=== PATIENT | female | born 1970 | race Caucasian/White ===

== ENCOUNTER → 2019-02-04 | Outpatient (CLI) | payer BC ==
--- NOTE | 2019-02-07 09:19 | MM ---
Reason for exam: screening (asymptomatic). Last mammogram was performed 1 year and 10 months ago. History: Silicone gel implants in both breasts, June 2010. Physical Findings: A clinical breast exam by your physician is recommended on an annual basis and results should be correlated with mammographic findings. MG 3D Screen Mammo Imp/Cad Bilateral CC, MLO, and ID view(s) were taken. Prior study comparison: April 06, 2017, bilateral MG 3d screen mammo imp/cad. June 17, 2011, CAD bilateral diagnostic mammogram. The breast tissue is heterogeneously dense. This may lower the sensitivity of mammography. No suspicious abnormality. Bilateral retorpectoral silicone implants. No significant changes when compared with prior studies. ASSESSMENT: Negative, BI-RAD 1 RECOMMENDATION: Routine screening mammogram of both breasts in 1 year.
== END | disposition home or self-care (01) ==
LOC: RADMAMWWP 09:06
PROVIDERS: ATTEND Family Medicine
DX: Z12.31 Encounter for screening mammogram for malignant neoplasm of breast (principal)
CPT/HCPCS: 77063; 77067

== ENCOUNTER → 2020-05-03 | Outpatient (CLI) | payer BC ==
--- NOTE | 2020-05-07 09:16 | MM ---
Reason for exam: screening (asymptomatic). Last mammogram was performed 1 year and 3 months ago. History: Silicone gel implants in both breasts, June 2010. Physical Findings: A clinical breast exam by your physician is recommended on an annual basis and results should be correlated with mammographic findings. MG 3D Screen Mammo Imp/Cad Bilateral CC, MLO, and ID view(s) were taken. Prior study comparison: February 04, 2019, bilateral MG 3d screen mammo imp/cad. April 06, 2017, bilateral MG 3d screen mammo imp/cad. The breast tissue is heterogeneously dense. This may lower the sensitivity of mammography. There are benign appearing round calcifications. There is chronic nodularity in the left upper outer quadrant. Bilateral subpectoral implants. ASSESSMENT: Benign, BI-RAD 2 RECOMMENDATION: Routine screening mammogram of both breasts in 1 year.
== END | disposition home or self-care (01) ==
LOC: RADMAMWWP 10:59
PROVIDERS: ATTEND Physician Assistant Medical
DX: Z12.31 Encounter for screening mammogram for malignant neoplasm of breast (principal)
CPT/HCPCS: 77063; 77067

== ENCOUNTER → 2021-09-05 | Outpatient (CLI) | payer BC ==
--- NOTE | 2021-09-06 12:32 | MM ---
Reason for exam: screening (asymptomatic). Last mammogram was performed 1 year and 4 months ago. History: Patient is postmenopausal. Silicone gel implants in both breasts, June 2010. Taking estrogen for 9 months. Taking progesterone for 9 months. Physical Findings: A clinical breast exam by your physician is recommended on an annual basis and results should be correlated with mammographic findings. MG 3D Screen Mammo Imp/Cad Bilateral CC, MLO, and ID view(s) were taken. Prior study comparison: May 03, 2020, bilateral MG 3d screen mammo imp/cad. February 04, 2019, bilateral MG 3d screen mammo imp/cad. The breast tissue is heterogeneously dense. This may lower the sensitivity of mammography. Implants are intact No significant changes when compared with prior studies. ASSESSMENT: Benign, BI-RAD 2 RECOMMENDATION: Routine screening mammogram of both breasts in 1 year.
== END | disposition home or self-care (01) ==
LOC: RADMAMWWP 13:45
PROVIDERS: ATTEND Family Medicine
DX: Z12.31 Encounter for screening mammogram for malignant neoplasm of breast (principal); Z78.0 Asymptomatic menopausal state
CPT/HCPCS: 77063; 77067

== ENCOUNTER → 2021-10-07 | Outpatient (CLI) | payer BC ==
--- NOTE | 2021-10-07 15:24 | P.HPBAR ---
Bariatric H&P - History & Physicial H&P Date: 10/07/21 History & Physicial: Visit/CC: Patient initial contact: Initial weight: Initial weight in pounds: Height: Initial BMI: Last weight: Current weight: Current weight in pounds: Current BMI: [place] body weight (based on NIH guidelines): Excess body weight loss: The patient is a 51 year-old F who presents for Bariatric Assessment. Patient presents today for presurgical consultation. Her weight is 202 pounds her height is 5 foot 3. Her BMI is 36. She's been morbidly obese for several years. She has developed comorbidities limited to morbid obesity. The patient is an excellent understanding of sleeve gastrectomy. When over the risks and benefits of the procedure. Surgical - Exam - General well developed, well nourished, no distress - Eyes PERRL - ENT normal pinna - Neck no masses - Respiratory normal expansion - Cardiovascular Rhythm: regular - Abdomen Abdomen: soft, non tender Bariatric Assessment & Plan Plan: Morbid obesity. BMI 36. Patient will be scheduled for EGD. She will have her follow-up after this is been performed. Bariatric Checklist Checklist: Plan: Checklist: EGD: 1. Hiatal hernia: 2. H. Pylori: HgbA1c: Vitamin D: Smoking: Primary care physician referral: Psychiatry clearance: Cardiology clearance: Sleep study: Diet journal: VTE risk score: VTE risk level: Rehab needs at discharge:
[2021-10-07 16:05] VITALS: BP 120/80; PULSE 59; RESP 16; TEMP 97.9; BMI 35.2
== END ==
LOC: BARWHC3 14:49
PROVIDERS: ATTEND Surgery
DX: E66.01 Morbid (severe) obesity due to excess calories (principal); Z01.818 Encounter for other preprocedural examination; Z68.36 Body mass index [BMI] 36.0-36.9, adult
CPT/HCPCS: 99211

== ENCOUNTER → 2021-10-10 | Outpatient (CLI) | payer BC ==
[2021-10-10 18:16] LABS: HCT 45.7 % (37.2-46.3); HGB 15.2 g/dL (12.0-15.0); MCH 30.7 pg (27.0-32.0); MCHC 33.3 g/dL (32.0-37.0); MCV 92.3 fL (80.0-97.0); Mean Platelet Volume 10.2 fL (9.5-12.2); NRBC Per 100 WBC 0 /100 WBCS (0.0-0.0); Platelet Count 213 X 10*3/uL (140-440); RBC 4.95 X 10*6/uL (4.10-5.20); RDW 12.2 % (11.5-14.5)
[2021-10-10 18:40] LABS: African American GFR (CKD) 80.5 (60.0-200.0); Albumin/Globulin Ratio 1.96 (1.60-3.17); Anion Gap 13.2 mmol/L (10.00-18.00); BUN/Creat Ratio 10.82 Ratio (12.00-20.00); Blood Urea Nitrogen 10.2 mg/dL (9.0-27.0); Calcium 9.7 mg/dL (8.7-10.3); Carbon Dioxide 23.3 mmol/L (20.0-27.5); Globulin 2.6 g/dL (1.6-3.3); Non-African American GFR(CKD) 69.5 (60.0-200.0); Potassium 4.3 mmol/L (3.5-5.5); Total Bilirubin 0.5 mg/dL (0.30-1.20); Total Protein 7.5 g/dL (6.2-8.2)
== END | disposition home or self-care (01) ==
LOC: LABWHC1 11:28
PROVIDERS: ATTEND Surgery
DX: E88.81 Metabolic syndrome and other insulin resistance (principal); E66.01 Morbid (severe) obesity due to excess calories; E55.9 Vitamin D deficiency, unspecified
CPT/HCPCS: 36415; 80053; 82306; 82607; 82746; 83036; 84425; 85027; 93005

== ENCOUNTER → 2021-11-04 | Day surgery (SDC) | payer BC ==
[2021-10-30 15:15] VITALS: BMI 35.2
[~2021-11-04] MED LIST: LIDOCAINE 2% INJ 20 MG/ML (2 ML VIAL) ONE; PROPOFOL 10 MG/ML 20 ML VIAL IV ONE
[2021-11-04 12:30] VITALS: TEMP 98.2
[2021-11-04] MEDS: LACTATED RINGERS 1,000 ML IV SCH ×2 (12:39→12:49)
--- NOTE | 2021-11-04 12:53 | P.GSHP ---
History of Present Illness H&P Date: 11/04/21 Chief Complaint: GERD, morbid obesity This a 49-year-old female presents today for EGD. She is undergoing workup for sleeve gastrectomy. She's had quit of GERD. She is morbidly obese. Her BMI is 36 Past Medical History Past Medical History: Thyroid Disorder Additional Past Medical History / Comment(s): LOW IRON LEVEL History of Any Multi-Drug Resistant Organisms: None Reported Past Surgical History: Tubal Ligation Additional Past Surgical History / Comment(s): TUMMY TUCK. BREAST AUGMENTATION. EYELID LIFT Past Anesthesia/Blood Transfusion Reactions: No Reported Reaction Smoking Status: Never smoker - Past Family History Mother Family Medical History: No Reported History Father Family Medical History: Cancer Additional Family Medical History / Comment(s): LUNG CANCER-WAS HEAVY SMOKER Medications and Allergies Home Medications Medication Instructions Recorded Confirmed Type Levothyroxine Sodium [Synthroid] 175 mcg PO DAILY 10/17/21 11/04/21 History Ferrous Sulfate [Feosol] 325 mg PO DAILY 10/30/21 11/04/21 History Multivit with Calcium,Iron,Min 1 each PO DAILY 10/30/21 11/04/21 History [Women's Multivitamin] Allergies Allergy/AdvReac Type Severity Reaction Status Date / Time No Known Allergies Allergy Verified 11/04/21 12:30 Surgical - Exam Vital Signs Temp Pulse Resp BP Pulse Ox 98.2 F 55 L 18 122/71 98 11/04/21 12:27 11/04/21 12:27 11/04/21 12:27 11/04/21 12:27 11/04/21 12:27 - General well developed, well nourished, no distress - Eyes PERRL - ENT normal pinna, normal nares, normal mucosa - Neck no masses - Respiratory normal expansion - Cardiovascular Rhythm: regular - Abdomen Abdomen: soft, non tender Assessment and Plan Assessment: GERD. We'll perform EGD.
--- NOTE | 2021-11-04 13:01 | P.OP ---
Date of Procedure: 11/04/21 Preoperative Diagnosis: GERD Postoperative Diagnosis: Antral gastritis Procedure(s) Performed: EGD Anesthesia: MAC Surgeon: Oswald Sandhu Pathology: other (Antrum) Condition: stable Disposition: PACU Description of Procedure: The patient's placed on the endoscopy table in the lateral position. She rece ived IV sedation. The gastroscope placed oropharynx passed in the esophagus and into the stomach. Scope was placed through the pylorus. The first and second portion of duodenum appeared normal. Scope was then brought back the antrum this was mildly inflamed. A biopsies was performed. Scope was then retroflexed and remainder the stomach appeared normal. The GE junction was at 40 cm per the distal esophagus was normal. The proximal esophagus appeared normal. Scope withdrawn for patient.
[2021-11-04 13:22] VITALS: BP 108/72; PULSE 60; RESP 20
== END ==
LOC: ORWHC2ENDO 11:12
PROVIDERS: ATTEND Surgery
DX: K29.50 Unspecified chronic gastritis without bleeding (principal); K21.9 Gastro-esophageal reflux disease without esophagitis; E66.01 Morbid (severe) obesity due to excess calories; E07.9 Disorder of thyroid, unspecified; Z68.36 Body mass index [BMI] 36.0-36.9, adult; Z79.890 Hormone replacement therapy; Z98.51 Tubal ligation status; Z80.1 Family history of malignant neoplasm of trachea, bronchus and lung
CPT/HCPCS: 81025; 88305; 43239; J2704; J2001

== ENCOUNTER → 2021-12-02 | Outpatient (CLI) | payer BC ==
[2021-12-02 14:43] VITALS: BP 105/68; PULSE 70; TEMP 98.4; BMI 34.7
--- NOTE | 2021-12-02 15:27 | P.HPBAR ---
Bariatric H&P - History & Physicial H&P Date: 12/02/21 History & Physicial: Visit/CC: f/u Patient initial contact: Initial weight: 91.711 kg Initial weight in pounds: 202.19 Height: 5 ft 3.5 in Initial BMI: 35.2 Last weight: Current weight: 90.265 kg Current weight in pounds: 199.00 Current BMI: 34.7 [place] body weight (based on NIH guidelines): 53.297 kg Excess body weight loss: 3.7% The patient is a 51 year-old F who presents for Bariatric Assessment. Patient resents today for presurgical screening. She recently had her EGD. This was within normal as. Her BMI is 35. She had some mild gastritis Past Medical History Past Medical History: Thyroid Disorder Additional Past Medical History / Comment(s): LOW IRON LEVEL History of Any Multi-Drug Resistant Organisms: None Reported Past Surgical History: Tubal Ligation Additional Past Surgical History / Comment(s): TUMMY TUCK. BREAST AUGMENTATION. EYELID LIFT Past Anesthesia/Blood Transfusion Reactions: No Reported Reaction Past Psychological History: No Psychological Hx Reported Smoking Status: Never smoker Past Alcohol Use History: Occasional Past Drug Use History: None Reported - Past Family History Mother Family Medical History: No Reported History Father Family Medical History: Cancer Additional Family Medical History / Comment(s): LUNG CANCER-WAS HEAVY SMOKER Surgical - Exam Vital Signs Temp Pulse BP 98.4 F 70 105/68 12/02/21 14:41 12/02/21 14:41 12/02/21 14:41 - General well developed, well nourished, no distress - Eyes PERRL - ENT normal pinna, normal nares - Neck no masses - Respiratory normal expansion - Cardiovascular Rhythm: regular - Abdomen Abdomen: soft, non tender Bariatric Assessment & Plan Plan: Morbid obesity, BMI 35. Patient's gastritis minimal. She will undergo sleeve gastrectomy once her insurance authorization is been met. Bariatric Checklist Checklist: Plan: Checklist: EGD: 1. Hiatal hernia: 2. H. Pylori: HgbA1c: Vitamin D: Smoking: Primary care physician referral: Lara Psychiatry clearance: Cardiology clearance: Sleep study: Diet journal: VTE risk score: VTE risk level: Rehab needs at discharge:
== END ==
LOC: BARWHC3 14:31
PROVIDERS: ATTEND Surgery
DX: Z01.818 Encounter for other preprocedural examination (principal); E66.01 Morbid (severe) obesity due to excess calories; Z68.35 Body mass index [BMI] 35.0-35.9, adult; K29.70 Gastritis, unspecified, without bleeding
CPT/HCPCS: 99211

== ENCOUNTER → 2022-01-13 | Outpatient (CLI) | payer BC ==
[2022-01-13 11:22] VITALS: BMI 35.6
== END ==
LOC: BARWHC3 08:47
PROVIDERS: ATTEND Surgery
DX: E66.01 Morbid (severe) obesity due to excess calories (principal); Z71.3 Dietary counseling and surveillance; Z68.35 Body mass index [BMI] 35.0-35.9, adult
CPT/HCPCS: 97804

== ENCOUNTER → 2022-02-03 | Outpatient (CLI) | payer BC ==
[2022-02-03 14:26] VITALS: BP 129/84; PULSE 66; TEMP 98; BMI 35.5
--- NOTE | 2022-02-03 14:56 | P.HPBAR ---
Bariatric H&P - History & Physicial H&P Date: 02/03/22 History & Physicial: Visit/CC: pre-surg sleeve Patient initial contact: Initial weight: 91.711 kg Initial weight in pounds: 202.19 Height: 5 ft 3.5 in Initial BMI: 35.2 Last weight: Current weight: 92.533 kg Current weight in pounds: 204.00 Current BMI: 35.5 [place] body weight (based on NIH guidelines): 53.297 kg Excess body weight loss: The patient is a 51 year-old F who presents for Bariatric Assessment.she presents today for presurgical consultation. Her weight is remain stable. She has an excellent understanding of sleeve gastrectomy. Past Medical History Past Medical History: Thyroid Disorder Additional Past Medical History / Comment(s): LOW IRON LEVEL History of Any Multi-Drug Resistant Organisms: None Reported Past Surgical History: Tubal Ligation Additional Past Surgical History / Comment(s): TUMMY TUCK. BREAST AUGMENTATION. EYELID LIFT Past Anesthesia/Blood Transfusion Reactions: No Reported Reaction Past Psychological History: No Psychological Hx Reported Smoking Status: Never smoker Past Alcohol Use History: Occasional Past Drug Use History: None Reported - Past Family History Mother Family Medical History: No Reported History Father Family Medical History: Cancer Additional Family Medical History / Comment(s): LUNG CANCER-WAS HEAVY SMOKER Surgical - Exam Vital Signs Temp Pulse BP 98 F 66 129/84 02/03/22 14:23 02/03/22 14:23 02/03/22 14:23 - General well developed, well nourished, no distress - Eyes PERRL - ENT normal pinna - Neck no masses - Abdomen Abdomen: soft, non tender Bariatric Assessment & Plan Plan: morbid obesity, BMI 36. We went over the risks and benefits of sleeve gastrectomy. Patient extensive risks and potential staple line disruption, bleeding and scarring. Patient will be scheduled for sleeve gastrectomy once her insurance authorization is complete. Bariatric Checklist Checklist: Plan: Checklist: EGD: 1. Hiatal hernia: 2. H. Pylori: HgbA1c: Vitamin D: Smoking: Primary care physician referral: Mariilldavidy Psychiatry clearance: Cardiology clearance: Sleep study: Diet journal: VTE risk score: VTE risk level: Rehab needs at discharge:
== END | disposition home or self-care (01) ==
LOC: BARWHC3 14:01
PROVIDERS: ATTEND Surgery
DX: E66.01 Morbid (severe) obesity due to excess calories (principal); Z68.36 Body mass index [BMI] 36.0-36.9, adult
CPT/HCPCS: 99211

== ENCOUNTER → 2022-03-03 | Outpatient (CLI) | payer BC ==
[2022-03-03 18:07] LABS: Basophils # (A) 0.02 X 10*3/uL (0.00-0.10); Basophils % (A) 0.3 %; Eosinophils # (A) 0.02 X 10*3/uL (0.04-0.35); Eosinophils % (A) 0.3 %; HCT 44.8 % (37.2-46.3); Immature Grans, Automated 0.6 %; Lymphocytes # (A) 1.85 X 10*3/uL (0.90-5.00); MCH 32.4 pg (27.0-32.0); MCHC 33.5 g/dL (32.0-37.0); MCV 96.8 fL (80.0-97.0); Mean Platelet Volume 10.4 fL (9.5-12.2); Monocytes # (A) 0.63 X 10*3/uL (0.20-1.00); Monocytes % (A) 10.2 %; NRBC Per 100 WBC 0 /100 WBCS (0.0-0.0); Neutrophils # (A) 3.61 X 10*3/uL (1.80-7.70); Neutrophils % (A) 58.6 %; Platelet Count 197 X 10*3/uL (140-440); RBC 4.63 X 10*6/uL (4.10-5.20); RDW 12.4 % (11.5-14.5); WBC 6.17 X 10*3/uL (4.50-10.00)
[2022-03-03 18:21] LABS: African American GFR (CKD) 89.8 (60.0-200.0); Albumin 4.8 g/dL (3.8-4.9); Albumin/Globulin Ratio 1.68 (1.60-3.17); Anion Gap 10.2 mmol/L (10.00-18.00); BUN/Creat Ratio 17.87 Ratio (12.00-20.00); Blood Urea Nitrogen 15.4 mg/dL (9.0-27.0); Calcium 9.3 mg/dL (8.7-10.3); Carbon Dioxide 27.5 mmol/L (20.0-27.5); Globulin 2.8 g/dL (1.6-3.3); Non-African American GFR(CKD) 77.5 (60.0-200.0); Potassium 4.6 mmol/L (3.5-5.5); Total Bilirubin 0.5 mg/dL (0.30-1.20); Total Protein 7.6 g/dL (6.2-8.2)
== END | disposition home or self-care (01) ==
LOC: LABPAT 10:37
PROVIDERS: ATTEND Surgery
DX: Z01.818 Encounter for other preprocedural examination (principal)
CPT/HCPCS: 80053; 85025

== ENCOUNTER 2022-03-17 09:33 | Observation (INO) | payer BC ==
[~2022-03-17 09:33] MED LIST changes: +DEXAMETHASONE SOD PHOSPHATE 4 MG/ML 1 ML VIAL IV ONE; +ENOXAPARIN 40 MG/0.4 ML SYRINGE SQ PRN; +LIDOCAINE 1% (10MG/ML) FOR IV START INTRADERMA PRN; -LIDOCAINE 2% INJ 20 MG/ML (2 ML VIAL) ONE; +MIDAZOLAM 2 MG/2 ML VIAL IV PRN; +ONDANSETRON 4 MG/2 ML VIAL IVP ONE; -PROPOFOL 10 MG/ML 20 ML VIAL IV ONE
[2022-03-17] MEDS: LACTATED RINGERS 1,000 ML IV SCH (09:51)
[2022-03-17 10:13] LABS: Glucose,Whole Blood 94 mg/dL (70-110)
[2022-03-17] MEDS ORDERED: BUPIVACAIN-EPI 0.25%-1:200,000 30 ML VIAL SQ ONE ×2 (10:28→11:23)
--- NOTE | 2022-03-17 10:49 | P.GSHP ---
History of Present Illness H&P Date: 03/17/22 Chief Complaint: Morbid obesity, BMI 35 This a 51-year-old female who presents today for laparoscopic sleeve gastrectomy. Patient's had lifetime problems obesity. Patient understands the risk of surgery including possible issues with gastric sleeve such as gastric sleeve staple line disruption, bleeding and scarring. Past Medical History Past Medical History: Osteoarthritis (OA), Sleep Apnea/CPAP/BIPAP, Thyroid Disorder Additional Past Medical History / Comment(s): steroid use Feb 2022,no cpap,hx anemia, low iron level,Osteoarthritis of back History of Any Multi-Drug Resistant Organisms: None Reported Past Surgical History: Tubal Ligation Additional Past Surgical History / Comment(s): TUMMY TUCK. BREAST AUGMENTATION- steven implants present. EYELID LIFT Past Anesthesia/Blood Transfusion Reactions: No Reported Reaction Additional Past Anesthesia/Blood Transfusion Reaction / Comment(s): no hx blood transfusion Smoking Status: Never smoker - Past Family History Mother Family Medical History: No Reported History Father Family Medical History: Cancer Additional Family Medical History / Comment(s): LUNG CANCER-WAS HEAVY SMOKER Medications and Allergies Home Medications Medication Instructions Recorded Confirmed Type Levothyroxine Sodium [Synthroid] 175 mcg PO QAM 10/17/21 03/17/22 History Ferrous Sulfate [Feosol] 325 mg PO DAILY 10/30/21 03/17/22 History Multivit with Calcium,Iron,Min 1 each PO DAILY 10/30/21 03/17/22 History [Women's Multivitamin] Allergies Allergy/AdvReac Type Severity Reaction Status Date / Time No Known Allergies Allergy Verified 03/17/22 09:53 Surgical - Exam Vital Signs Temp Pulse Resp BP Pulse Ox 98.1 F 73 18 117/67 97 03/17/22 09:52 03/17/22 09:52 03/17/22 09:52 03/17/22 09:52 03/17/22 09:52 - General well developed, well nourished, no distress - Eyes PERRL - ENT normal pinna - Neck no masses - Respiratory normal expansion - Cardiovascular Rhythm: regular - Abdomen Abdomen: soft, non tender Assessment and Plan Assessment: Morbid obesity, BMI 35. We'll perform laparoscopic sleeve gastrectomy.
[2022-03-17] MEDS ORDERED: SUCCINYLCHOLINE CHLORIDE 200 MG/10 ML VIAL IV ONE (11:03)
[2022-03-17] MEDS ORDERED: fentaNYL (PF) 50 MCG/ML 2 ML AMP ONE (11:03)
[2022-03-17] MEDS ORDERED: ROCURONIUM 10 MG/ML (5 ML VIAL) IV ONE (11:03)
[2022-03-17] MEDS ORDERED: PROPOFOL 10 MG/ML 20 ML VIAL IV ONE (11:03)
[2022-03-17] MEDS ORDERED: MIDAZOLAM 2 MG/2 ML VIAL ONE (11:03)
[2022-03-17] MEDS ORDERED: GLYCOPYRROLATE 0.2 MG/ML 2 ML VIAL ONE (11:03)
[2022-03-17] MEDS ORDERED: NEOSTIGMINE 1 MG/ML 10 ML VIAL ONE (11:03)
[2022-03-17] MEDS ORDERED: LIDOCAINE 2% INJ 20 MG/ML (2 ML VIAL) ONE (11:03)
[2022-03-17] MEDS ORDERED: LACTATED RINGERS 1,000 ML IV ONE (11:38)
[2022-03-17] MEDS ORDERED: ACETAMINOPHEN IV (For NPO) 1,000 MG in EMPTY BAG 1 BAG IVPB ONE (12:08)
[2022-03-17] MEDS ORDERED: NALOXONE 0.4 MG/ML 1 ML VIAL IV PRN (12:08)
[2022-03-17] MEDS ORDERED: ONDANSETRON 4 MG/2 ML VIAL IVP PRN (12:08)
[2022-03-17] MEDS ORDERED: HYDROmorphone 1 MG/ML 1 ML SYRINGE IVP PRN (12:08)
--- NOTE | 2022-03-17 12:08 | P.OP ---
Date of Procedure: 03/17/22 Preoperative Diagnosis: Morbid obesity, BMI 35 Postoperative Diagnosis: Morbid obesity, BMI 35 Procedure(s) Performed: Laparoscopic sleeve gastrectomy Anesthesia: [facility] Surgeon: Oswald Sandhu Estimated Blood Loss (ml): 5 Pathology: other (Stomach) Condition: stable Disposition: PACU Description of Procedure: The patient was placed on the operating room table in the supine position. She received general anesthesia and then was placed in dorsal lithotomy position. Her abdomen was prepped and draped in sterile fashion. The skin incision sites were anesthetized 1% local Xylocaine. And then the skin was incised with an 11 blade in the left lateral position. Using a blade less trocar under direct visualization the peritoneal cavity was entered. The abdomen was insufflated and then a 5 mm laparoscope was placed into the peritoneal cavity. A 5 mm trocar was placed in the right epigastric, and right lateral position. A 15 mm trocar was placed in the supra-umbilical position and another 5 mm trocar was placed in the left lateral position. The left lateral lobe of the liver was retracted. The stomach was visualized. The greater curvature of the stomach was then dissected using the Harmonic scissors. The dissection occurred approximately 5 cm from the pylorus to the level of the left ally. There was no hiatal hernia seen. At this point a 40-Canadian bougie dilator was placed the oropharynx and passed into the esophagus and into the stomach by the FRY COOK. The sleeve gastrectomy was performed by using the powered echelon stapler with a seam guard buttress material. Sequential firings of the stapler were performed. The gastric remnant was then brought out through the 15 mm trocar site. The dilator was withdrawn. And a orogastric tube was replaced into the stomach. The stomach was insufflated with 200 mL of methylene blue normal saline. There was no evidence of extravasation. The abdomen was irrigated there is no bleeding seen. The Alex-Saulo device was used to close the 15 mm trocar with 0 Vicryl. Skin was closed with interrupted 3-0 Monocryl sutures once the trochars withdrawn. Dermabond dressing was applied. Patient was sent to recovery in stable condition.
[2022-03-17] MEDS: diphenhydrAMINE 50 MG/ML 1 ML VIAL IVP ONE ×2 (12:23→14:01)
[2022-03-17] MEDS: HYDROmorphone 0.5 MG/0.5 ML SYRINGE IVP PRN ×5 (12:23→21:22)
[2022-03-17] MEDS: KETOROLAC 15 MG/ML 1 ML VIAL IVP SCH (15:53)
--- NOTE | 2022-03-17 18:46 | P.CONS ---
History of Present Illness - Reason for Consult Consult date: 03/17/22 - History of Present Illness Patient is a 51-year-old female with PMH of hypothyroidism, morbid obesity the presents to [facility] for elective surgery. She underwent laparoscopic sleeve gastrectomy. [facility] has been consulted for medical management of this patient. Patient currently reports 6 out of 10 epigastric pain. She complains of nausea but no vomiting. She is able to urinate freely. Not passing gas, no bowel movement. Tolerating ice chips well. Patient denies any headache, lower extremity edema, fever chills, cough, chest pain, shortness breath, palpitations. No changes in appetite or weight. She denies any dizziness, numbness/weakness/tingling of the extremities. Pertinent positives and negatives as discussed in HPI, a complete review of systems was performed and all other systems are negative. General: non toxic, no distress, appears at stated age Derm: warm, dry Head: atraumatic, normocephalic, symmetric Eyes: EOMI, no lid lag, anicteric sclera Mouth: no lip lesion, mucus membranes moist Cardiovascular: S1S2 reg, no murmur Lungs: CTA bilateral, no rhonchi, no rales , no accessory muscle use Abdominal: soft, nontender to palpation, no guarding, sluggish bowel sounds Ext: no gross muscle atrophy, no edema, no contractures Neuro: no focal neuro deficits Psych: Alert, oriented, appropriate affect #Hypoxia #Hypothyroidism #Morbid obesity Patient is coming saturating 92% on room air. Albuterol nebulizer as needed ordered. Incentive spirometer encouraged. Restart Synthroid. Patient will benefit from a structured weight loss program. Thank you for this consultation. Please call [facility] with additional questions or concerns. Past Medical History Past Medical History: Osteoarthritis (OA), Sleep Apnea/CPAP/BIPAP, Thyroid Disorder Additional Past Medical History / Comment(s): steroid use Feb 2022,no cpap,hx anemia, low iron level,Osteoarthritis of back History of Any Multi-Drug Resistant Organisms: None Reported Past Surgical History: Tubal Ligation Additional Past Surgical History / Comment(s): TUMMY TUCK. BREAST AUGMENTATION- steven implants present. EYELID LIFT Past Anesthesia/Blood Transfusion Reactions: No Reported Reaction Additional Past Anesthesia/Blood Transfusion Reaction / Comm: no hx blood transfusion Past Psychological History: No Psychological Hx Reported Smoking Status: Never smoker Past Alcohol Use History: Occasional Past Drug Use History: None Reported - Past Family History Mother Family Medical History: No Reported History Father Family Medical History: Cancer Additional Family Medical History / Comment(s): LUNG CANCER-WAS HEAVY SMOKER Medications and Allergies Home Medications Medication Instructions Recorded Confirmed Type Levothyroxine Sodium [Synthroid] 175 mcg PO QAM 10/17/21 03/17/22 History Ferrous Sulfate [Feosol] 325 mg PO DAILY 10/30/21 03/17/22 History Multivit with Calcium,Iron,Min 1 each PO DAILY 10/30/21 03/17/22 History [Women's Multivitamin] Allergies Allergy/AdvReac Type Severity Reaction Status Date / Time No Known Allergies Allergy Verified 03/17/22 09:53 Physical Exam Vitals: Vital Signs Temp Pulse Pulse Resp BP BP Pulse Ox 03/17/22 17:54 76 119/75 92 L 03/17/22 17:39 66 127/76 93 L 03/17/22 17:24 61 130/78 92 L 03/17/22 17:09 72 129/74 94 L 03/17/22 16:54 97.9 F 63 18 146/75 95 03/17/22 16:00 60 16 153/88 91 L 03/17/22 15:00 59 L 16 154/77 99 03/17/22 14:30 56 L 16 161/85 99 03/17/22 14:00 55 L 16 166/85 100 03/17/22 13:50 63 16 167/83 100 03/17/22 13:35 53 L 16 165/81 98 03/17/22 13:20 54 L 16 169/81 97 03/17/22 13:05 66 18 163/82 100 03/17/22 12:50 70 16 162/87 100 03/17/22 12:35 61 16 169/68 99 03/17/22 12:20 64 16 138/68 100 03/17/22 12:05 97.2 F L 89 16 134/75 98 03/17/22 09:52 98.1 F 73 18 117/67 97 Intake and Output 03/17/22 03/17/22 03/17/22 06:59 14:59 22:59 Intake Total 1150 750 Output Total 50 Balance 1100 750 Intake: IV 1150 750 Output: Estimated Blood Loss 50 Other: # Voids 2 Weight 89 kg 89 kg
[2022-03-17] MEDS: ALBUTEROL NEBULIZED 2.5 MG/3 ML INHALATION SCH ×2 (20:01→20:02)
[2022-03-17] MEDS: ENOXAPARIN 40 MG/0.4 ML SYRINGE SQ SCH (21:27)
[2022-03-18] MEDS: KETOROLAC 15 MG/ML 1 ML VIAL IVP SCH ×3 (00:46→11:42)
[2022-03-18] MEDS: 0.9% NACL WITH KCL 20 MEQ/L 1,000 ML IV SCH ×3 (02:13→04:24)
[2022-03-18] MEDS: HYDROmorphone 0.5 MG/0.5 ML SYRINGE IVP PRN (03:51)
[2022-03-18] MEDS: LACTATED RINGERS 1,000 ML IV SCH (06:22)
[2022-03-18] MEDS ORDERED: 1: MVI, ADULT NO.4 WITH VIT K 10 ML, THIAMINE 100 MG, FOLIC ACID 1 MG, POTASSIUM CHLORID IV SCH ×6 (08:00)
[2022-03-18] MEDS ORDERED: 1: THIAMINE 100 MG, FOLIC ACID 1 MG in 0.9% NACL WITH KCL 20 MEQ/L 1,000 ML 2: 0.9% NAC IVPB SCH (08:30)
[2022-03-18] MEDS: ALBUTEROL NEBULIZED 2.5 MG/3 ML INHALATION SCH ×2 (08:57→12:41)
[2022-03-18] MEDS ORDERED: LEVOTHYROXINE 88 MCG TAB PO SCH (09:00)
[2022-03-18 09:41] LABS: Basophils # (A) 0.02 X 10*3/uL (0.00-0.10); Basophils % (A) 0.2 %; Eosinophils # (A) 0.01 X 10*3/uL (0.04-0.35); Eosinophils % (A) 0.1 %; HCT 33.7 % (37.2-46.3); HGB 11.4 g/dL (12.0-15.0); Immature Grans, Automated 0.3 %; Lymphocytes # (A) 1.35 X 10*3/uL (0.90-5.00); Lymphocytes % (A) 14.1 %; MCH 31.7 pg (27.0-32.0); MCHC 33.8 g/dL (32.0-37.0); MCV 93.6 fL (80.0-97.0); Mean Platelet Volume 10.2 fL (9.5-12.2); Monocytes # (A) 1.01 X 10*3/uL (0.20-1.00); Monocytes % (A) 10.5 %; NRBC Per 100 WBC 0 /100 WBCS (0.0-0.0); Neutrophils # (A) 7.18 X 10*3/uL (1.80-7.70); Neutrophils % (A) 74.8 %; Platelet Count 193 X 10*3/uL (140-440); RDW 12.3 % (11.5-14.5)
[2022-03-18] MEDS: HYDROcodone/APAP 15 ML SOLUTION PO PRN ×2 (09:58→15:49)
[2022-03-18] MEDS: ENOXAPARIN 40 MG/0.4 ML SYRINGE SQ SCH (10:02)
[2022-03-18 10:20] LABS: African American GFR (CKD) 98.2 (60.0-200.0); Anion Gap 10.2 mmol/L (10.00-18.00); Blood Urea Nitrogen 12.3 mg/dL (9.0-27.0); Calcium 8.6 mg/dL (8.7-10.3); Carbon Dioxide 22.8 mmol/L (20.0-27.5); Non-African American GFR(CKD) 84.8 (60.0-200.0); Phosphorus 2.8 mg/dL (2.4-5.1); Potassium 4.5 mmol/L (3.5-5.5)
[2022-03-18 10:23] LABS: Magnesium 2.1 mg/dL (1.5-2.4)
--- NOTE | 2022-03-18 11:44 | P.PN ---
Subjective Progress Note Date: 03/18/22 Patient currently reports 2 out of 10 epigastric pain. She denies nausea or vomiting. She is able to urinate freely. Not passing gas, no bowel movement. Tolerating clear liquid diet well. General: non toxic, no distress, appears at stated age Derm: warm, dry Head: atraumatic, normocephalic, symmetric Eyes: EOMI, no lid lag, anicteric sclera Mouth: no lip lesion, mucus membranes moist Cardiovascular: S1S2 reg, no murmur Lungs: CTA bilateral, no rhonchi, no rales , no accessory muscle use Abdominal: soft, nontender to palpation, no guarding, sluggish bowel sounds, laparascopic scars no discharge or erythema Ext: no gross muscle atrophy, no edema, no contractures Neuro: no focal neuro deficits Psych: Alert, oriented, appropriate affect #Hypothyroidism #Morbid obesity Resolved: Hypoxia Restart Synthroid. Patient will benefit from a structured weight loss program. Patient is medically stable for discharge. Thank you for this consultation. Please call [facility] with additional questions or concerns. Objective - Vital Signs Vital signs: Vital Signs Temp 97.4 F L 03/18/22 07:39 Pulse 60 03/18/22 07:39 Resp 17 03/18/22 07:39 BP 122/76 03/18/22 07:39 Pulse Ox 97 03/18/22 08:57 FiO2 Intake & Output 03/17/22 03/18/22 03/18/22 18:59 06:59 18:59 Intake Total 1900 1850 Output Total 50 Balance 1850 1850 Weight 89 kg Intake: IV 1900 Intake, IV Titration 1850 Amount 0.9% NaCl with KCl 20 Meq 1800 /l 1,000 ml @ 150 mls/hr IV .[id number] [facility] Rx#: [id number] ceFAZolin 2 gm In Sodium 50 Chloride 0.9% 50 ml @ 100 mls/hr IVPB Q8HR [facility] Rx# :[id number] Output: Estimated Blood Loss 50 Other: # Voids 2 1 - Labs CBC & Chem 7: 03/18/22 05:40 03/18/22 05:40 Labs: Abnormal Lab Results - Last 24 Hours (Table) 03/18/22 03/18/22 Range/Units 05:40 05:40 RBC 3.60 L (4.10-5.20) X 10*6/uL Hgb 11.4 L (12.0-15.0) g/dL Hct 33.7 L (37.2-46.3) % Monocytes # 1.01 H (0.20-1.00) X 10*3/uL Eosinophils # 0.01 L (0.04-0.35) X 10*3/uL Calcium 8.6 L (8.7-10.3) mg/dL
--- NOTE | 2022-03-18 12:56 | P.DS ---
Providers Date of admission: 03/17/22 22:53 Expected date of discharge: 03/18/22 Attending physician: Oswald Sandhu Consults: 03/17/22 12:08 Consult Physician Routine Consulting Provider: Keesha Naik Consult Reason/Comments: Medical management Do you want consulting provider notified?: Yes Primary care physician: [facility] Course: Discharge diagnosis 1. Morbid obesity status post laparoscopic sleeve gastrectomy Hospital course This is a 51-year-old female with a known history of morbid obesity. She status post laparoscopic sleeve gastrectomy. She tolerated surgery well. Her pain is controlled. She is tolerating diet. She has been up and ambulating. She is afebrile. She is stable for discharge. Physician Public Relations Account Supervisor note has been reviewed by physician. Signing provider agrees with the documented findings, assessment, and plan of care. Patient Condition at Discharge: Stable Plan - Discharge Summary Discharge Rx Participant: No New Discharge Prescriptions: New Omeprazole [PriLOSEC] 40 mg PO DAILY #30 cap bisacodyL [Dulcolax] 5 mg PO DAILY PRN #10 tab PRN Reason: Constipation Simethicone 40 mg/0.6 ml Drops [Mylicon Drops] 40 mg PO PCHS PRN #30 ml PRN Reason: Gas Ondansetron Odt [Zofran Odt] 4 mg PO Q8HR PRN #9 tab PRN Reason: Nausea HYDROcodone/APAP 5-325MG [[place] 5-325] 1 tab PO Q6HR PRN 2 Days #5 tab PRN Reason: Pain Continue Levothyroxine Sodium [Synthroid] 175 mcg PO QAM Discontinued Ferrous Sulfate [Feosol] 325 mg PO DAILY Multivit with Calcium,Iron,Min [Women's Multivitamin] 1 each PO DAILY Discharge Medication List Levothyroxine Sodium [Synthroid] 175 mcg PO QAM 10/17/21 [History] HYDROcodone/APAP 5-325MG [[place] 5-325] 1 tab PO Q6HR PRN 2 Days #5 tab 03/18/22 [Rx] Omeprazole [PriLOSEC] 40 mg PO DAILY #30 cap 03/18/22 [Rx] Ondansetron Odt [Zofran Odt] 4 mg PO Q8HR PRN #9 tab 03/18/22 [Rx] Simethicone 40 mg/0.6 ml Drops [Mylicon Drops] 40 mg PO PCHS PRN #30 ml 03/18/22 [Rx] bisacodyL [Dulcolax] 5 mg PO DAILY PRN #10 tab 03/18/22 [Rx] [place] [facility](s[place]Ref[place] [facility] 1 Week Activity/Diet/Wound Care/Special Instructions: No driving while taking [place] No lifting over 10 pounds Shower daily. No soaking or tub baths for 2 weeks Very light activity until you are reevaluated at your follow up appointment with your surgeon No straws or carbonated beverages Hold on taking all vitamins and minerals until seen by surgeon Discharge Disposition: HOME SELF-CARE
[2022-03-18 13:18] VITALS: BMI 34.2
[2022-03-18 14:05] VITALS: BP 108/66; PULSE 64; RESP 18; TEMP 98.9
== END 2022-03-18 16:09 | disposition home or self-care (01) ==
LOC: OR 09:33 → 4SSUR 16:43 → OR 22:53
PROVIDERS: ADMIT Surgery; ATTEND Surgery
DX: E66.9 Obesity, unspecified (principal); R09.02 Hypoxemia; K29.50 Unspecified chronic gastritis without bleeding; E03.9 Hypothyroidism, unspecified; Z68.35 Body mass index [BMI] 35.0-35.9, adult; Z98.51 Tubal ligation status; Z80.1 Family history of malignant neoplasm of trachea, bronchus and lung; Z79.890 Hormone replacement therapy
CPT/HCPCS: 96376; 96365; 96366; 96367; 96372; 96375; 94640; 94760; 97161; 80051; 82310; 82565; 83735; 84100; 84520; 85025; 88307; 43775; G0378 ×2; J2250; J0330; J1200; J1100; J2710; J3411; J0690 ×2; J2405; J1650 ×2; J3010; J1885 ×2; J2704; J1170 ×2; J2001

== ENCOUNTER → 2022-03-24 | Outpatient (CLI) | payer BC ==
[2022-03-24 14:47] VITALS: BP 108/73; PULSE 66; TEMP 97.9; BMI 33.1
--- NOTE | 2022-03-24 14:54 | P.HPBAR ---
Bariatric H&P - History & Physicial H&P Date: 03/24/22 History & Physicial: Visit/CC: gastric sleeve 1 week F/U Patient initial contact: Initial weight: 91.711 kg Initial weight in pounds: 202.19 Height: 5 ft 3.5 in Initial BMI: 35.2 Last weight: Current weight: 86.183 kg Current weight in pounds: 190.00 Current BMI: 33.1 [place] body weight (based on NIH guidelines): 53.297 kg Excess body weight loss: 14.3% She denies any dysphagia or GERD. The patient is a 51 year-old F who presents for Bariatric Assessment. Patient resents today for sleeve gastrectomy follow-up. Past Medical History Past Medical History: Osteoarthritis (OA), Sleep Apnea/CPAP/BIPAP, Thyroid Disorder Additional Past Medical History / Comment(s): LOW IRON LEVEL. Osteoarthritis of back History of Any Multi-Drug Resistant Organisms: None Reported Past Surgical History: Tubal Ligation Additional Past Surgical History / Comment(s): TUMMY TUCK. BREAST AUGMENTATION. EYELID LIFT Past Anesthesia/Blood Transfusion Reactions: No Reported Reaction Additional Past Anesthesia/Blood Transfusion Reaction / Comm: no hx blood transfusion Past Psychological History: No Psychological Hx Reported Smoking Status: Never smoker Past Alcohol Use History: Occasional Past Drug Use History: None Reported - Past Family History Mother Family Medical History: No Reported History Father Family Medical History: Cancer Additional Family Medical History / Comment(s): LUNG CANCER-WAS HEAVY SMOKER Surgical - Exam Vital Signs Temp Pulse BP 97.9 F 66 108/73 03/24/22 14:43 03/24/22 14:43 03/24/22 14:43 - General well developed, well nourished, no distress - Eyes PERRL - ENT normal pinna - Neck no masses - Respiratory normal expansion - Cardiovascular Rhythm: regular - Abdomen Abdomen: soft, non tender Bariatric Assessment & Plan Plan: Status post sleeve gastrectomy. Patient's doing quite well. She'll follow-up in 2 weeks. Bariatric Checklist Checklist: Plan: Checklist: EGD: 1. Hiatal hernia: 2. H. Pylori: HgbA1c: Vitamin D: Smoking: Primary care physician referral: Lara Psychiatry clearance: Cardiology clearance: Sleep study: Diet journal: VTE risk score: VTE risk level: Rehab needs at discharge:
== END ==
LOC: BARWHC3 14:36
PROVIDERS: ATTEND Surgery
DX: Z48.815 Encounter for surgical aftercare following surgery on the digestive system (principal); E66.01 Morbid (severe) obesity due to excess calories; Z98.84 Bariatric surgery status; Z68.33 Body mass index [BMI] 33.0-33.9, adult
CPT/HCPCS: 99211

== ENCOUNTER → 2022-04-14 | Outpatient (CLI) | payer BC ==
[2022-04-14 13:53] VITALS: BP 118/75; PULSE 58; TEMP 98.2; BMI 31.8
--- NOTE | 2022-04-14 14:19 | P.HPBAR ---
Bariatric H&P - History & Physicial H&P Date: 04/14/22 History & Physicial: Visit/CC: 1 month sleeve F/U Patient initial contact: Initial weight: 91.711 kg Initial weight in pounds: 202.19 Height: 5 ft 3.5 in Initial BMI: 35.2 Last weight: Current weight: 83.007 kg Current weight in pounds: 183.00 Current BMI: 31.8 [place] body weight (based on NIH guidelines): 53.297 kg Excess body weight loss: 22.6% The patient is a 51 year-old F who presents for Bariatric Assessment. Patient presents today for sleeve gastric fall. She's lost another 7 pounds. She has some minimal GERD. She denies any dysphagia. Past Medical History Past Medical History: Osteoarthritis (OA), Sleep Apnea/CPAP/BIPAP, Thyroid Disorder Additional Past Medical History / Comment(s): LOW IRON LEVEL. Osteoarthritis of back History of Any Multi-Drug Resistant Organisms: None Reported Past Surgical History: Tubal Ligation Additional Past Surgical History / Comment(s): TUMMY TUCK. BREAST AUGMENTATION. EYELID LIFT Past Anesthesia/Blood Transfusion Reactions: No Reported Reaction Additional Past Anesthesia/Blood Transfusion Reaction / Comm: no hx blood transfusion Past Psychological History: No Psychological Hx Reported Smoking Status: Never smoker Past Alcohol Use History: Occasional Past Drug Use History: None Reported - Past Family History Mother Family Medical History: No Reported History Father Family Medical History: Cancer Additional Family Medical History / Comment(s): LUNG CANCER-WAS HEAVY SMOKER Surgical - Exam Vital Signs Temp Pulse BP 98.2 F 58 L 118/75 04/14/22 13:48 04/14/22 13:48 04/14/22 13:48 - General well developed, well nourished, no distress - Eyes PERRL - ENT normal pinna - Neck no masses - Respiratory normal expansion - Cardiovascular Rhythm: regular - Abdomen Abdomen: soft, non tender Bariatric Assessment & Plan Plan: Status post sleeve gastrectomy. Patient's GERD is minimal and will be observed. She'll follow-up in 4 weeks. Bariatric Checklist Checklist: Plan: Checklist: EGD: 1. Hiatal hernia: 2. H. Pylori: HgbA1c: Vitamin D: Smoking: Primary care physician referral: Lara Psychiatry clearance: Cardiology clearance: Sleep study: Diet journal: VTE risk score: VTE risk level: Rehab needs at discharge:
[2022-04-14 22:53] LABS: HCT 40.2 % (37.2-46.3); HGB 13.3 g/dL (12.0-15.0); MCH 30.9 pg (27.0-32.0); MCHC 33.1 g/dL (32.0-37.0); MCV 93.3 fL (80.0-97.0); Mean Platelet Volume 10.5 fL (9.5-12.2); NRBC Per 100 WBC 0 /100 WBCS (0.0-0.0); Platelet Count 189 X 10*3/uL (140-440); RBC 4.31 X 10*6/uL (4.10-5.20); RDW 12.2 % (11.5-14.5)
[2022-04-14 23:18] LABS: % Iron Saturation 14.08 (12.00-45.00); African American GFR (CKD) 95.2 (60.0-200.0); Albumin 4.4 g/dL (3.8-4.9); Albumin/Globulin Ratio 1.88 (1.60-3.17); Anion Gap 9.8 mmol/L (10.00-18.00); BUN/Creat Ratio 23.14 Ratio (12.00-20.00); Calcium 9.7 mg/dL (8.7-10.3); Carbon Dioxide 26.2 mmol/L (20.0-27.5); Globulin 2.4 g/dL (1.6-3.3); Magnesium 2.3 mg/dL (1.5-2.4); Non-African American GFR(CKD) 82.2 (60.0-200.0); Potassium 4.4 mmol/L (3.5-5.5); Total Bilirubin 0.3 mg/dL (0.30-1.20); Total Protein 6.8 g/dL (6.2-8.2)
== END ==
LOC: BARWHC3 13:33
PROVIDERS: ATTEND Surgery
DX: E66.01 Morbid (severe) obesity due to excess calories (principal); K21.9 Gastro-esophageal reflux disease without esophagitis; Z98.84 Bariatric surgery status; Z68.31 Body mass index [BMI] 31.0-31.9, adult
CPT/HCPCS: 80053; 82306; 82607; 82728; 82746; 83540; 83550; 83735; 84255; 84425; 84443; 84590; 84630; 85027; 99211

== ENCOUNTER → 2022-05-01 | Outpatient (CLI) | payer BC | END | disposition home or self-care (01) | LOC: LABWHC1 10:58 | PROVIDERS: ATTEND Surgery | DX: E66.01 Morbid (severe) obesity due to excess calories (principal); D50.8 Other iron deficiency anemias; E44.0 Moderate protein-calorie malnutrition; E55.9 Vitamin D deficiency, unspecified; T56.894A Toxic effect of other metals, undetermined, initial encounter | CPT/HCPCS: 36415; 84255; 84425; 84590 ==

== ENCOUNTER → 2022-05-26 | Outpatient (CLI) | payer BC ==
[2022-05-26 14:30] VITALS: BMI 29.8
[2022-05-26 14:45] VITALS: BP 112/78; PULSE 59; TEMP 98.2
--- NOTE | 2022-05-26 15:14 | P.HPBAR ---
Bariatric H&P - History & Physicial H&P Date: 05/26/22 History & Physicial: Visit/CC: two month follow up Patient initial contact: Initial weight: 91.711 kg Initial weight in pounds: 202.19 Height: 5 ft 4 in Initial BMI: 34.7 Last weight: Current weight: 78.925 kg Current weight in pounds: 174.00 Current BMI: 29.8 [place] body weight (based on NIH guidelines): 54.431 kg Excess body weight loss: 34.2% The patient is a 51 year-old F who presents for Bariatric Assessment. Patient presents today for bariatric follow-up. She's lost another 11 pounds since her last visit. She has minimal complaints of GERD. Past Medical History Past Medical History: Osteoarthritis (OA), Sleep Apnea/CPAP/BIPAP, Thyroid Disorder Additional Past Medical History / Comment(s): LOW IRON LEVEL. Osteoarthritis of back History of Any Multi-Drug Resistant Organisms: None Reported Past Surgical History: Tubal Ligation Additional Past Surgical History / Comment(s): TUMMY TUCK. BREAST AUGMENTATION. EYELID LIFT Past Anesthesia/Blood Transfusion Reactions: No Reported Reaction Additional Past Anesthesia/Blood Transfusion Reaction / Comm: no hx blood transfusion Smoking Status: Never smoker - Past Family History Mother Family Medical History: No Reported History Father Family Medical History: Cancer Additional Family Medical History / Comment(s): LUNG CANCER-WAS HEAVY SMOKER Surgical - Exam Vital Signs Temp Pulse BP 98.2 F 59 L 112/78 05/26/22 14:42 05/26/22 14:42 05/26/22 14:42 - General well developed, well nourished, no distress - Eyes PERRL - ENT normal pinna - Neck no masses - Respiratory normal expansion Bariatric Assessment & Plan Plan: Status post sleeve gastric. Patient appears minimal be observed. She'll follow-up in 4 weeks. Bariatric Checklist Checklist: Plan: Checklist: EGD: 1. Hiatal hernia: 2. H. Pylori: HgbA1c: Vitamin D: Smoking: Primary care physician referral: Robbiehillimy Psychiatry clearance: Cardiology clearance: Sleep study: Diet journal: VTE risk score: VTE risk level: Rehab needs at discharge:
== END ==
LOC: BARWHC3 13:30
PROVIDERS: ATTEND Surgery
DX: E66.01 Morbid (severe) obesity due to excess calories (principal); Z98.84 Bariatric surgery status; Z68.29 Body mass index [BMI] 29.0-29.9, adult
CPT/HCPCS: 97802; 99211

== ENCOUNTER → 2022-10-10 | Outpatient (CLI) | payer BC ==
--- NOTE | 2022-10-13 09:28 | MM ---
Reason for Exam: Screening (asymptomatic). Last mammogram was performed 1 year(s) and 1 month(s) ago. Patient History: Menarche at age 12. First Full-Term at age 17. Postmenopausal. Currently using Estrogen, for 9 months. Currently using Progesterone, for 9 months. 06/2010, Bilateral Implants. Risk Values: Laura 5 year model risk: 0.8%. NCI Lifetime model risk: 6.2%. Prior Study Comparison: 02/04/2019 Bilateral Screening Mammogram, [facility]. 05/03/2020 Bilateral Screening Mammogram, [facility]. 09/05/2021 Bilateral Screening Mammogram, [facility]. Tissue Density: The breast tissue is heterogeneously dense. This may lower the sensitivity of mammography. Findings: Analyzed By CAD. There is no suspicious group of microcalcifications or new suspicious mass in either breast. Bilateral implants are intact. Overall Assessment: Benign, BI-RAD 2 Management: Screening Mammogram of both breasts in 1 year. . Patient should continue monthly self-breast exams. A clinical breast exam by your physician is recommended on an annual basis. This exam should not preclude additional follow-up of suspicious palpable abnormalities. Note on Laura scores and lifetime risk: 1. A Laura score greater than 3% is considered moderate risk. If this is the case, consider specialist referral to assess eligibility for a risk reducing agent. 2. If overall lifetime risk for the development of breast cancer is 20% or higher, the patient may qualify for future screening with alternating mammogram and breast MRI. Electronically signed and approved by: Hemal Nicole M.D. Radiologis
== END | disposition home or self-care (01) ==
LOC: RADMAMWWP 13:30
PROVIDERS: ATTEND Family Medicine
DX: Z12.31 Encounter for screening mammogram for malignant neoplasm of breast (principal); Z78.0 Asymptomatic menopausal state; Z98.82 Breast implant status
CPT/HCPCS: 77063; 77067

== ENCOUNTER → 2023-05-13 | Outpatient (CLI) | payer BC | END | disposition home or self-care (01) | LOC: LABWHC1 11:25 | PROVIDERS: ATTEND Internal Medicine Endocrinology, Diabetes & Metabolism | DX: E03.8 Other specified hypothyroidism (principal) | CPT/HCPCS: 36415; 84443 ==

== ENCOUNTER → 2023-10-12 | Outpatient (CLI) | payer BC ==
--- NOTE | 2023-10-14 09:53 | MM ---
Reason for Exam: Hx of breast augmentation, asymptomatic. Last screening mammogram was performed 12 month(s) ago. Patient History: Menarche at age 12. First Full-Term at age 17. Postmenopausal. Currently using Estrogen, starting at age 51. Currently using Progesterone, starting at age 51. 06/2010, Bilateral Implants. Risk Values: Laura 5 year model risk: 0.8%. NCI Lifetime model risk: 6.1%. Prior Study Comparison: 04/06/2017 Bilateral Screening Mammogram, [facility]. 02/04/2019 Bilateral Screening Mammogram, [facility]. 05/03/2020 Bilateral Screening Mammogram, [facility]. 09/05/2021 Bilateral Screening Mammogram, [facility]. 10/10/2022 Bilateral MG 3D screen mammo imp/cad., [facility]. Tissue Density: The breasts are heterogeneously dense, which may obscure small masses. Findings: Analyzed By CAD. There is no suspicious group of microcalcifications or new suspicious mass in either breast. Lateral breast implants are intact. Overall Assessment: Benign, BI-RAD 2 Management: Screening Mammogram of both breasts in 1 year. . Patient should continue monthly self-breast exams. A clinical breast exam by your physician is recommended on an annual basis. This exam should not preclude additional follow-up of suspicious palpable abnormalities. Note on Laura scores and lifetime risk: 1. A Laura score greater than 3% is considered moderate risk. If this is the case, consider specialist referral to assess eligibility for a risk reducing agent. 2. If overall lifetime risk for the development of breast cancer is 20% or higher, the patient may qualify for future screening with alternating mammogram and breast MRI. Electronically signed and approved by: Hemal Nicole M.D. Radiologis
== END | disposition home or self-care (01) ==
LOC: RADMAMWWP 09:18
PROVIDERS: ATTEND Family Medicine
DX: Z12.31 Encounter for screening mammogram for malignant neoplasm of breast (principal); Z78.0 Asymptomatic menopausal state
CPT/HCPCS: 77063; 77067

== ENCOUNTER → 2023-10-19 | Outpatient (CLI) | payer BC ==
[2023-10-19 10:17] VITALS: BP 108/70; PULSE 57; RESP 14; TEMP 97.8; BMI 30.8
--- NOTE | 2023-10-19 16:02 | P.HPBAR ---
Bariatric H&P - History & Physicial H&P Date: 10/19/23 History & Physicial: Visit/CC: yearly f/u to discuss injections for weight loss Patient initial contact: Initial weight: 91.711 kg Initial weight in pounds: 202.19 Height: 5 ft 3.5 in Initial BMI: 35.2 Last weight: Current weight: 80.286 kg Current weight in pounds: 177.00 Current BMI: 30.8 [place] body weight (based on NIH guidelines): 53.297 kg Excess body weight loss: 29.7% The patient is a 53 year-old F who presents for Bariatric Assessment.patient presents today for bariatric follow-up. Patient has been struggling weight loss. She has not lost any significant weight loss 6 months. She's had some minimal GERD. Past Medical History Past Medical History: Osteoarthritis (OA), Sleep Apnea/CPAP/BIPAP, Thyroid Disorder Additional Past Medical History / Comment(s): LOW IRON LEVEL. Osteoarthritis of back History of Any Multi-Drug Resistant Organisms: None Reported Past Surgical History: Bariatric Surgery, Tubal Ligation Additional Past Surgical History / Comment(s): TUMMY TUCK. BREAST AUGMENTATION. EYELID LIFT. GASTRIC SLEEVE 2021 Past Anesthesia/Blood Transfusion Reactions: No Reported Reaction Additional Past Anesthesia/Blood Transfusion Reaction / Comm: no hx blood transfusion Past Psychological History: No Psychological Hx Reported Smoking Status: Never smoker Past Alcohol Use History: Occasional Past Drug Use History: None Reported - Past Family History Mother Family Medical History: No Reported History Father Family Medical History: Cancer Additional Family Medical History / Comment(s): LUNG CANCER-WAS HEAVY SMOKER Surgical - Exam Vital Signs Temp Pulse Resp BP Pulse Ox 97.8 F 57 L 14 108/70 97 10/19/23 09:40 10/19/23 09:40 10/19/23 09:40 10/19/23 09:40 10/19/23 09:40 - General well developed, well nourished, no distress - Eyes PERRL - ENT normal pinna - Neck no masses - Respiratory normal expansion - Cardiovascular Rhythm: regular - Abdomen Abdomen: soft, non tender Bariatric Assessment & Plan Plan: resolving morbid obesity. Patient will be given a trial of [place]. She will follow-up in one week. Her GERD is minimal and will be observed. Bariatric Checklist Checklist: Plan: Checklist: EGD: 1. Hiatal hernia: 2. H. Pylori: HgbA1c: Vitamin D: Smoking: Primary care physician referral: Lara Psychiatry clearance: Cardiology clearance: Sleep study: Diet journal: VTE risk score: VTE risk level: Rehab needs at discharge:
== END ==
LOC: BARWHC3 09:37
PROVIDERS: ATTEND Surgery
DX: K21.9 Gastro-esophageal reflux disease without esophagitis (principal); E66.01 Morbid (severe) obesity due to excess calories; Z98.84 Bariatric surgery status; Z90.3 Acquired absence of stomach [part of]; Z68.30 Body mass index [BMI] 30.0-30.9, adult
CPT/HCPCS: 99211

== ENCOUNTER → 2024-10-12 | Outpatient (CLI) | payer BC ==
--- NOTE | 2024-10-12 14:56 | MM ---
Reason for Exam: Hx of breast augmentation, asymptomatic. Last screening mammogram was performed 12 month(s) ago. Patient History: Menarche at age 12. First Full-Term at age 17. Postmenopausal. Currently using Estrogen, starting at age 51. Currently using Progesterone, starting at age 51. 06/2010, Bilateral Implants. Risk Values: Laura 5 year model risk: 0.8%. NCI Lifetime model risk: 6.0%. Prior Study Comparison: 09/05/2021 Bilateral Screening Mammogram, [facility]. 10/10/2022 Bilateral MG 3D screen mammo imp/cad., [facility]. 10/12/2023 Bilateral MG 3D screen mammo imp/cad., [facility]. Tissue Density: There are scattered areas of fibroglandular density. Findings: Analyzed By CAD. Redemonstrated bilateral retropectoral silicone implants. Chronic nodularity superior left breast. There is no suspicious group of microcalcifications or new suspicious mass in either breast. Overall Assessment: Benign, BI-RAD 2 Management: Screening Mammogram of both breasts in 1 year. Patient should continue monthly self-breast exams. A clinical breast exam by your physician is recommended on an annual basis. This exam should not preclude additional follow-up of suspicious palpable abnormalities. Note on Laura scores and lifetime risk: 1. A Laura score greater than 3% is considered moderate risk. If this is the case, consider specialist referral to assess eligibility for a risk reducing agent. 2. If overall lifetime risk for the development of breast cancer is 20% or higher, the patient may qualify for future screening with alternating mammogram and breast MRI. [facility], , 10/12/2024 2:53 PM. Electronically signed and approved by: Andie Aparicio M.D. Radiologist
== END | disposition home or self-care (01) ==
LOC: RADMAMWWP 09:52
PROVIDERS: ATTEND Obstetrics & Gynecology
DX: Z12.31 Encounter for screening mammogram for malignant neoplasm of breast (principal); R92.323 Mammographic fibroglandular density, bilateral breasts; Z78.0 Asymptomatic menopausal state; Z98.82 Breast implant status
CPT/HCPCS: 77063; 77067